=== PATIENT | female | born 1955 | race Caucasian/White ===

== ENCOUNTER 2019-12-15 21:38 | Emergency (ER) | payer OTHER ==
--- NOTE | 2019-12-15 21:54 | ED.PDOC ---
History of Present Illness - General Chief Complaint: Trauma Time Seen by Provider: 12/15/19 21:41 Source: patient, family Additional Information: The patient is a 64 year old with no significant past medical history who presents with head trauma. States that she was walking up stairs when she tripped over her dog and hit her nasal bridge on the edge of the stair. She denies loss of consciousness. Complains of headache and facial pain. She takes aspirin daily. No neck pain. No other complaints at this time. - History of Present Illness Allergies/Adverse Reactions: Allergies NO KNOWN ALLERGY Allergy (Verified 12/15/19 22:04) Home Medications: Ambulatory Orders Acetaminophen W/ Codeine [Tylenol W/ CODEINE #3] 1 ea PO Q4HR #20 ea 12/15/19 Review of Systems - Review of Systems Constitutional: Denies: chills, fever EENTM: States: nose pain Respiratory: Denies: cough, short of breath Cardiology: States: no symptoms reported Gastrointestinal/Abdominal: States: no symptoms reported Genitourinary: States: no symptoms reported Musculoskeletal: States: no symptoms reported Skin: States: no symptoms reported Neurological: States: no symptoms reported Endocrine: States: no symptoms reported Hematologic/Lymphatic: States: no symptoms reported All other Systems: Reviewed and Negative Family Medical History - Family History Mother Family History: Unknown Physical Exam - Physical Exam General Appearance: Anxious, No apparent distress Eye Exam: bilateral normal Ears, Nose, Throat: hearing grossly normal, normal ENT inspection, normal pharynx, other - deformity to the nasal bridge. no septal hematoma. midface stable. There is small laceration to the bridge of the nose, no active bleeding. Neck: non-tender, full range of motion, supple, normal inspection Respiratory: no respiratory distress Neurologic: no motor/sensory deficits, alert, normal mood/affect, oriented x 3 Progress - Progress Progress: 12/15/19 21:56 The patient is 64 on aspirin with head injury and headache. Will CT scan to r/o intracranial trauma. 12/15/19 23:02 Patient reassessed, wound closed with dermabond. No septal hematoma visible on repeat exam. CT shows comminuted fracture of bilateral nasal bones and nasal septum. Will need close outpatient f/u with ENT. The patient states that she is already established with an ENT and was provided with disk of imaging. Home care instructions and return indications reviewed. - EKG/XRAY/CT CT: Comminuted/displaced fractures of bilateral nasal bones and nasal septum Procedures - Laceration/Wound Repair Face Wound Length (cm): 1 Wound's Depth, Shape: superficial Wound Explored: clean Departure - Departure Clinical Impression: Laceration Nasal bone fracture Qualifiers: Encounter type: initial encounter Fracture type: closed Qualified Code(s): S02.2XXA - Fracture of nasal bones, initial encounter for closed fracture Time of Disposition: 23:07 Disposition: Discharge to Home or Self Care Condition: Excellent Departure Forms: ED Discharge - Pt. Copy, Patient Portal Self Enrollment Instructions: DI for Trauma, Nose Fracture (DC) Diet: resume usual diet Activity: increase activity as tolerated Prescriptions: Acetaminophen W/ Codeine [Tylenol W/ CODEINE #3] 1 ea PO Q4HR #20 ea Home Medications: Ambulatory Orders Acetaminophen W/ Codeine [Tylenol W/ CODEINE #3] 1 ea PO Q4HR #20 ea 12/15/19 Additional Instructions: Follow up with your ENT within one week, return to the ER as needed with any worsening of your symptoms.
[2019-12-15] MEDS: HYDROcodone 10MG/APAP 325MG 1 EA TAB PO ONE (21:58)
--- NOTE | 2019-12-15 22:40 | CT ---
EXAM DESCRIPTION: Head CLINICAL HISTORY: 64 years Female, closed head injury PROCEDURE: 5 mm axial images were obtained along with 2 mm reformatted coronal and sagittal images. This exam was performed according to our departmental dose-optimization program, which includes automated exposure control, adjustment of the mA and/or kV according to patient size and/or use of iterative reconstruction technique. COMPARISON: None. FINDINGS: No acute abnormal extracerebral fluid collections are demonstrated. The cortical sulci, ventricles, and cisterns are within normal limits. There are no areas of altered attenuation identified to suggest acute hemorrhage, infarction, or mass lesion. The visualized portions of the paranasal sinuses and mastoid air cells are remarkable for moderately severe mucosal thickening within the right maxillary sinus.. There is a moderately severe depressed and comminuted fracture involving the left nasal bone. IMPRESSION: 1. No acute intracranial abnormality. 2. Comminuted and depressed fracture left nasal bone. 3. Right maxillary sinusitis. Electronically signed by: Walt Sandoval MD 12/15/2019 10:39 PM CDT
--- NOTE | 2019-12-15 22:44 | CT ---
EXAM DESCRIPTION: Maxillofacial CLINICAL HISTORY: 64 years Female, closed head injury, nasal bone fracture COMPARISON: None. TECHNIQUE: 2.5 mm noncontrast axial images of the maxillofacial bones were obtained along with coronal and sagittal reformatted images. DOSE OPTIMIZATION: This facility uses dose optimization techniques as appropriate to perform exams, including at least one of the following techniques: 1. Automated exposure control. 2. Adjustment of the mA and/or kV according to patient size (this includes techniques or standardized protocols for targeted exams where dose is matched to the indication/reason for exam, i.e. extremities or head). 3. Use of iterative reconstructive technique. FINDINGS: There is a severely comminuted fracture involving the right and left nasal bones as well as the anterior nasal septum. The fractures are significantly depressed. No other fractures are identified. There is moderately severe mucosal thickening within the right maxillary sinus. The soft tissues are remarkable for moderately severe edema adjacent to the nasal fracture site. IMPRESSION: 1. Comminuted and depressed fractures involving the right and left nasal bones as well as the nasal septum. 2. Moderately severe right maxillary sinusitis. Electronically signed by: Walt Sandoval MD 12/15/2019 10:42 PM CDT
[2019-12-15 23:03] VITALS: BP 163/69; O2SAT 97
[2019-12-15] MEDS: HYDROCOD/APAP 5/325 (ER DISP) #3 TAB PO ONE (23:25)
[2019-12-15 23:29] VITALS: TEMP 98.2
== END 2019-12-15 23:25 | disposition home or self-care (01) ==
LOC: ER 21:38
DX: S02.2XXB Fracture of nasal bones, initial encounter for open fracture (principal); R51 Headache; Z79.82 Long term (current) use of aspirin; W10.9XXA Fall (on) (from) unspecified stairs and steps, initial encounter; Y92.9 Unspecified place or not applicable